=== PATIENT | male | born 1960 | race Caucasian/White ===

== ENCOUNTER 2017-08-02 10:57 | Emergency (ER) | payer OTHER ==
[~2017-08-02] VITALS: Ht 167.6 cm; Wt 65.8 kg
[2017-08-02 11:10] VITALS: BP 115/70
[2017-08-02] MEDS ORDERED: BACITRACIN TOP OINT 1 UD PKG TOP ONE (11:45)
[2017-08-02] MEDS ORDERED: LIDOCAINE 1% HCL (LOCAL ANESTH.) INJ 20ML MDV IJ ONE (11:45)
== END 2017-08-02 12:29 | disposition home or self-care (01) ==
LOC: ER 10:57
DX: S01.112A Laceration without foreign body of left eyelid and periocular area, initial encounter (principal); X58.XXXA Exposure to other specified factors, initial encounter; Y93.89 Activity, other specified; Y99.8 Other external cause status; Y92.89 Other specified places as the place of occurrence of the external cause
CPT/HCPCS: 12013; 99283; J2001

== ENCOUNTER 2017-08-04 10:19 | Emergency (ER) | payer OTHER ==
[~2017-08-04] VITALS: Ht 167.6 cm; Wt 65.8 kg
[2017-08-04 12:18] VITALS: BP 132/68
[2017-08-04] MEDS ORDERED: methylPREDNISolone SOD SUCC 125 MG/2 ML VL IM ONE (12:30)
== END 2017-08-04 13:00 | disposition home or self-care (01) ==
LOC: ER 10:19
DX: S00.12XA Contusion of left eyelid and periocular area, initial encounter (principal); X58.XXXA Exposure to other specified factors, initial encounter; Y93.89 Activity, other specified; Y92.89 Other specified places as the place of occurrence of the external cause; Y99.8 Other external cause status
CPT/HCPCS: 96372; 99283; J2930

== ENCOUNTER 2020-03-12 06:58 | Emergency (ER) | payer OTHER ==
[~2020-03-12] VITALS: Ht 167.6 cm; Wt 65.8 kg
[2020-03-12 08:16] VITALS: BP 133/74
== END 2020-03-12 09:11 | disposition home or self-care (01) ==
LOC: ER 06:58
DX: L02.11 Cutaneous abscess of neck (principal); F17.210 Nicotine dependence, cigarettes, uncomplicated
CPT/HCPCS: 99283; J7030